=== PATIENT | female | born 1980 | race Caucasian/White ===

== ENCOUNTER 2020-05-13 21:39 | Emergency (ER) | payer MEDICARE ==
[~2020-05-13 21:39] MED LIST: CYAN1000I IM; ESTR30GE TD; HYDR-4068 PO; LISI-613 PO; PROG100C11 PO; QUET200T29 PO; QUET50TA55 PO
[2020-05-13 22:28] LABS: BASOPHILS % (AUTO) 0.4 % (0.0-5.0); EOSINOPHILS % (AUTO) 1.6 % (0.0-8.0); HEMATOCRIT 38.7 % (36-48); LYMPHOCYTES % (AUTO) 33.2 % (21.0-51.0); MEAN CORPUSCULAR HEMOGLOBIN 26.8 pg (27.0-33.0); MEAN CORPUSCULAR HGB CONC 33.9 g/dL (32.0-36.0); MEAN CORPUSCULAR VOLUME 79.1 fL (79-99); MONOCYTES % (AUTO) 7.7 % (3.0-13.0); NEUTROPHILS % (AUTO) 56.9 % (40.0-77.0); PLATELET COUNT (AUTO) 273 K/uL (130-400); RED BLOOD CELL COUNT(AUTO) 4.89 MIL/uL (4.00-5.50); RED CELL DISTRIBUTION WIDTH 13.8 % (11.0-15.5); WHITE BLOOD COUNT (AUTO) 5.6 K/uL (4.8-10.8)
[2020-05-13] MEDS ORDERED: ONDANSETRON HCL 4 MG/2 ML VIAL ONE ×2 (22:28→23:09)
[2020-05-13 22:29] LABS: BILIRUBIN,URINE Negative (NEGATIVE); COLOR,URINE Yellow (YELLOW); GLUCOSE, URINE (UA) Negative (NEGATIVE); KETONES,URINE Negative (NEGATIVE); LEUKOCYTE ESTERASE ,URINE Negative (NEGATIVE); NITRATE,URINE Negative (NEGATIVE); OCCULT BLOOD,URINE Negative (NEGATIVE); PH,URINE 5.5 (5.0-8.0); PROTEIN,URINE Negative (NEGATIVE)
[2020-05-13] MEDS ORDERED: MORPHINE SULFATE 4 MG/1ML SYG ONE ×2 (22:29→23:10)
[2020-05-13 22:31] LABS: APPEARANCE,URINE CLEAR (CLEAR)
[2020-05-13 22:57] LABS: CREATININE 0.8 mg/dL (0.5-1.5); POTASSIUM 3.5 mmol/L (3.5-5.1)
[2020-05-13 23:00] LABS: ALBUMIN 3.5 g/dL (3.5-5.0); BILIRUBIN,TOTAL 0.3 mg/dL (0.2-1.0); TOTAL PROTEIN, SERUM 7.2 g/dL (6.0-8.3)
== END 2020-05-13 23:56 | disposition home or self-care (01) ==
LOC: EDH 21:39
DX: R10.31 Right lower quadrant pain (principal); R11.2 Nausea with vomiting, unspecified; F41.9 Anxiety disorder, unspecified; F31.9 Bipolar disorder, unspecified; J45.909 Unspecified asthma, uncomplicated; Z88.6 Allergy status to analgesic agent; Z91.041 Radiographic dye allergy status; Z88.8 Allergy status to other drugs, medicaments and biological substances; Z91.018 Allergy to other foods; Z79.899 Other long term (current) drug therapy; Z98.890 Other specified postprocedural states; Z72.0 Tobacco use
CPT/HCPCS: 36415; 74176; 80053; 81003; 81025; 82150; 83690; 85025; 96374; 96375; 96376; 99284; J2270 ×2; J2405 ×2

== ENCOUNTER 2020-06-08 23:49 | Emergency (ER) | payer MEDICARE ==
[2020-06-09] MEDS ORDERED: ONDANSETRON HCL 4 MG/2 ML VIAL ONE (00:53)
[2020-06-09] MEDS ORDERED: MORPHINE SULFATE 4 MG/1ML SYG ONE (00:53)
[2020-06-09] MEDS ORDERED: SODIUM CHLORIDE 0.9% 1000ML 1,000 ML IV ONE (01:03)
[2020-06-09] MEDS ORDERED: FAMOTIDINE/PF 20 MG/2 ML VIAL IV ONE (01:39)
[2020-06-09] MEDS ORDERED: METOCLOPRAMIDE 10 MG/2 ML VIAL ONE (02:12)
[2020-06-09] MEDS ORDERED: DiphenhydrAMINE HCL 50 MG/ML VIAL ONE (02:13)
[2020-06-09] MEDS ORDERED: FENTANYL CITRATE PF 50 MCG/1 ML 2ML VIAL ONE (02:13)
== END 2020-06-09 03:28 | disposition home or self-care (01) ==
LOC: EDH 23:49
DX: R11.2 Nausea with vomiting, unspecified (principal); R10.31 Right lower quadrant pain; F41.9 Anxiety disorder, unspecified; J45.909 Unspecified asthma, uncomplicated; F31.9 Bipolar disorder, unspecified; I10 Essential (primary) hypertension; Z72.0 Tobacco use; Z88.8 Allergy status to other drugs, medicaments and biological substances; Z88.6 Allergy status to analgesic agent; Z91.018 Allergy to other foods; Z91.040 Latex allergy status; Z88.1 Allergy status to other antibiotic agents; Z79.899 Other long term (current) drug therapy; M54.5 Low back pain; M79.89 Other specified soft tissue disorders
CPT/HCPCS: 36415; 80053; 81003; 83690; 85025; 93971; 96361; 96374; 96375; 99284; J1200; J2270; J2405; J2765; J3010; J3490; J7030

== ENCOUNTER 2020-08-07 02:27 | Emergency (ER) | payer MEDICARE ==
[2020-08-07] MEDS ORDERED: ONDANSETRON HCL 4 MG/2 ML VIAL ONE (03:28)
[2020-08-07] MEDS ORDERED: METOCLOPRAMIDE 10 MG/2 ML VIAL ONE (03:28)
[2020-08-07] MEDS ORDERED: MORPHINE SULFATE 4 MG/1ML SYG ONE (03:28)
[2020-08-07 03:32] LABS: BASOPHILS % (AUTO) 0.3 % (0.0-5.0); HEMATOCRIT 41.7 % (36-48); LYMPHOCYTES % (AUTO) 27.6 % (21.0-51.0); MEAN CORPUSCULAR HEMOGLOBIN 27.2 pg (27.0-33.0); MEAN CORPUSCULAR HGB CONC 33.1 g/dL (32.0-36.0); MEAN CORPUSCULAR VOLUME 82.2 fL (79-99); MONOCYTES % (AUTO) 6.4 % (3.0-13.0); NEUTROPHILS % (AUTO) 65.5 % (40.0-77.0); PLATELET COUNT (AUTO) 372 K/uL (130-400); RED BLOOD CELL COUNT(AUTO) 5.07 MIL/uL (4.00-5.50); RED CELL DISTRIBUTION WIDTH 14.2 % (11.0-15.5); WHITE BLOOD COUNT (AUTO) 8.6 K/uL (4.8-10.8)
[2020-08-07 03:41] LABS: CREATININE 1.1 mg/dL (0.5-1.5); POTASSIUM 3.2 mmol/L (3.5-5.1)
[2020-08-07 03:45] LABS: ALBUMIN 4.3 g/dL (3.5-5.0); BILIRUBIN,TOTAL 0.6 mg/dL (0.2-1.0); TOTAL PROTEIN, SERUM 8.5 g/dL (6.0-8.3)
== END 2020-08-07 04:44 | disposition home or self-care (01) ==
LOC: EDH 02:27
DX: K31.84 Gastroparesis (principal); R11.10 Vomiting, unspecified; F41.9 Anxiety disorder, unspecified; J45.909 Unspecified asthma, uncomplicated; F31.9 Bipolar disorder, unspecified; I10 Essential (primary) hypertension; Z98.890 Other specified postprocedural states; Z90.49 Acquired absence of other specified parts of digestive tract; Z72.0 Tobacco use; Z88.1 Allergy status to other antibiotic agents; Z88.6 Allergy status to analgesic agent; Z88.8 Allergy status to other drugs, medicaments and biological substances; Z91.018 Allergy to other foods
CPT/HCPCS: 36415; 80053; 85025; 96361; 96374; 96375; 99284; J2270; J2405; J2765

== ENCOUNTER 2020-09-08 21:22 | Emergency (ER) | payer MEDICARE | END 2020-09-08 22:03 | disposition home or self-care (01) | LOC: EDH 21:22 | DX: L03.115 Cellulitis of right lower limb (principal); L03.811 Cellulitis of head [any part, except face]; F31.9 Bipolar disorder, unspecified; E66.9 Obesity, unspecified; J45.909 Unspecified asthma, uncomplicated; I10 Essential (primary) hypertension; F41.9 Anxiety disorder, unspecified; Z68.42 Body mass index [BMI] 45.0-49.9, adult; Z88.1 Allergy status to other antibiotic agents; Z88.6 Allergy status to analgesic agent; Z91.018 Allergy to other foods; Z88.8 Allergy status to other drugs, medicaments and biological substances; Z90.49 Acquired absence of other specified parts of digestive tract; Z90.710 Acquired absence of both cervix and uterus; Z98.890 Other specified postprocedural states ==

== ENCOUNTER 2020-10-15 20:59 | Emergency (ER) | payer MEDICARE ==
[2020-10-15 21:54] LABS: BASOPHILS % (AUTO) 0.3 % (0.0-5.0); EOSINOPHILS % (AUTO) 0.1 % (0.0-8.0); HEMATOCRIT 37.7 % (36-48); LYMPHOCYTES % (AUTO) 38.5 % (21.0-51.0); MEAN CORPUSCULAR HEMOGLOBIN 26.9 pg (27.0-33.0); MEAN CORPUSCULAR HGB CONC 32.6 g/dL (32.0-36.0); MEAN CORPUSCULAR VOLUME 82.3 fL (79-99); MONOCYTES % (AUTO) 5.5 % (3.0-13.0); NEUTROPHILS % (AUTO) 55.2 % (40.0-77.0); PLATELET COUNT (AUTO) 292 K/uL (130-400); RED BLOOD CELL COUNT(AUTO) 4.58 MIL/uL (4.00-5.50); RED CELL DISTRIBUTION WIDTH 13.8 % (11.0-15.5); WHITE BLOOD COUNT (AUTO) 10.3 K/uL (4.8-10.8)
[2020-10-15] MEDS ORDERED: METOCLOPRAMIDE 10 MG/2 ML VIAL ONE (22:04)
[2020-10-15] MEDS ORDERED: DiphenhydrAMINE HCL 50 MG/ML VIAL ONE (22:05)
[2020-10-15] MEDS ORDERED: ONDANSETRON HCL 4 MG/2 ML VIAL ONE (22:06)
[2020-10-15] MEDS ORDERED: SODIUM CHLORIDE 0.9% 1000ML 1,000 ML IV ONE ×2 (22:06)
[2020-10-15 22:10] LABS: CREATININE 0.9 mg/dL (0.5-1.5); POTASSIUM 3.8 mmol/L (3.5-5.1)
[2020-10-15 22:13] LABS: INR 0.92 (0.85-1.15); PARTIAL THROMBOPLASTIN TIME 21.2 SEC (26.3-35.5)
[2020-10-15 22:17] LABS: ALBUMIN 3.7 g/dL (3.5-5.0); BILIRUBIN,TOTAL 0.3 mg/dL (0.2-1.0); TOTAL PROTEIN, SERUM 7.5 g/dL (6.0-8.3)
== END 2020-10-15 23:30 | disposition left against medical advice (07) ==
LOC: EDH 20:59
DX: R10.31 Right lower quadrant pain (principal); R11.2 Nausea with vomiting, unspecified; I10 Essential (primary) hypertension; J45.909 Unspecified asthma, uncomplicated; F41.9 Anxiety disorder, unspecified; F31.9 Bipolar disorder, unspecified; Z88.1 Allergy status to other antibiotic agents; Z88.6 Allergy status to analgesic agent; Z88.8 Allergy status to other drugs, medicaments and biological substances; Z91.018 Allergy to other foods; Z90.49 Acquired absence of other specified parts of digestive tract; Z98.890 Other specified postprocedural states; Z90.722 Acquired absence of ovaries, bilateral; Z72.0 Tobacco use; Z76.5 Malingerer [conscious simulation]
CPT/HCPCS: 36415; 80053; 83605; 83690; 84484; 85025; 85610; 85730; 86850; 86900; 86901; 93005; 96361; 96374; 96375; 99284; J1200; J2405; J2765; J7030 ×2

== ENCOUNTER 2020-12-26 13:25 | Emergency (ER) | payer MEDICARE ==
[~2020-12-26 13:25] MED LIST changes: -LISI-613 PO; +LISI20TA24 PO; +QUET50TA22 PO; -QUET50TA55 PO
[2020-12-26 14:51] LABS: APPEARANCE,URINE Clear (CLEAR); BILIRUBIN,URINE Negative (NEGATIVE); COLOR,URINE Yellow (YELLOW); GLUCOSE, URINE (UA) Negative (NEGATIVE); KETONES,URINE Negative (NEGATIVE); LEUKOCYTE ESTERASE ,URINE Trace (NEGATIVE); NITRATE,URINE Negative (NEGATIVE); OCCULT BLOOD,URINE Negative (NEGATIVE); PROTEIN,URINE Negative (NEGATIVE)
[2020-12-26 14:59] LABS: HCG,QUAL RESULT NEGATIVE (NEGATIVE)
[2020-12-26 15:05] LABS: BACTERIA,URINE Few /HPF (None Seen); MUCUS,URINE Few LPF (None Seen); SQUAMOUS EPITHELIAL CELL,UR Moderate /HPF (0-2)
[2020-12-26] MEDS ORDERED: HYDROMORPHONE 1 MG/1 ML AMP ONE (15:25)
[2020-12-26] MEDS ORDERED: METOCLOPRAMIDE 10 MG/2 ML VIAL ONE (15:25)
[2020-12-26] MEDS ORDERED: SODIUM CHLORIDE 0.9% 1000ML 1,000 ML IV ONE (15:26)
[2020-12-26 15:40] LABS: BASOPHILS % (AUTO) 0.2 % (0.0-5.0); EOSINOPHILS % (AUTO) 0.2 % (0.0-8.0); HEMATOCRIT 23.7 % (36-48); LYMPHOCYTES % (AUTO) 22.3 % (21.0-51.0); MEAN CORPUSCULAR HEMOGLOBIN 24.2 pg (27.0-33.0); MEAN CORPUSCULAR VOLUME 80.9 fL (79-99); MONOCYTES % (AUTO) 8.4 % (3.0-13.0); NEUTROPHILS % (AUTO) 68.7 % (40.0-77.0); PLATELET COUNT (AUTO) 436 K/uL (130-400); RED BLOOD CELL COUNT(AUTO) 2.93 MIL/uL (4.00-5.50); WHITE BLOOD COUNT (AUTO) 4.8 K/uL (4.8-10.8)
[2020-12-26 15:52] LABS: CREATININE 0.7 mg/dL (0.5-1.5); POTASSIUM 3.7 mmol/L (3.5-5.1)
[2020-12-26 15:54] LABS: INR 1.04 (0.85-1.15); PROTHROMBIN TIME 11.3 SEC (9.6-11.6)
[2020-12-26 15:56] LABS: PARTIAL THROMBOPLASTIN TIME 23.6 SEC (26.3-35.5)
[2020-12-26 16:02] LABS: ALBUMIN 3.2 g/dL (3.5-5.0); BILIRUBIN,TOTAL 0.4 mg/dL (0.2-1.0); TOTAL PROTEIN, SERUM 7.4 g/dL (6.0-8.3)
[2020-12-26] MEDS ORDERED: IOHEXOL-350 75 ML VIAL IV ONE (16:05)
[2020-12-26] MEDS ORDERED: ONDANSETRON HCL 4 MG/2 ML VIAL ONE (17:18)
[2020-12-26] MEDS ORDERED: HYDROMORPHONE HCL 0.5 MG/0.5 ML ML ONE (17:18)
[2020-12-26] MEDS ORDERED: MORPHINE SULFATE 4 MG/1ML SYG ONE (18:11)
== END 2020-12-26 18:25 | disposition home or self-care (01) ==
LOC: EDH 13:25
DX: G89.18 Other acute postprocedural pain (principal); M54.5 Low back pain; R10.13 Epigastric pain; R11.2 Nausea with vomiting, unspecified; F41.9 Anxiety disorder, unspecified; F31.9 Bipolar disorder, unspecified; J45.909 Unspecified asthma, uncomplicated; I10 Essential (primary) hypertension; Z90.49 Acquired absence of other specified parts of digestive tract; Z98.890 Other specified postprocedural states; Z91.018 Allergy to other foods; Z88.1 Allergy status to other antibiotic agents; Z88.8 Allergy status to other drugs, medicaments and biological substances; Z88.2 Allergy status to sulfonamides; Z88.6 Allergy status to analgesic agent
CPT/HCPCS: 36415; 74177; 80053; 81001; 81025; 82150; 83605; 83690; 84702; 85025; 85610; 85730; 87040; 93005; 96361; 96374 ×2; 96375 ×2; 96376; 99284; 99285; J1170 ×2; J2270; J2405; J2765 ×2; J3490; J7030 ×2; Q9967; J1200; J1885

== ENCOUNTER 2020-12-26 21:55 | Emergency (ER) | payer MEDICARE ==
[~2020-12-26 21:55] MED LIST changes: +LISI-613 PO; -LISI20TA24 PO; -QUET50TA22 PO; +QUET50TA55 PO
[2020-12-26] MEDS ORDERED: METOCLOPRAMIDE 10 MG/2 ML VIAL ONE (22:50)
[2020-12-26] MEDS ORDERED: SODIUM CHLORIDE 0.9% 50 ML IV ONE (22:51)
[2020-12-26] MEDS ORDERED: FAMOTIDINE/PF 20 MG/2 ML VIAL IV ONE (22:51)
[2020-12-26] MEDS ORDERED: SODIUM CHLORIDE 0.9% 1000ML 1,000 ML IV ONE (23:34)
[2020-12-27] MEDS ORDERED: KETOROLAC TROMETHAMINE 30MG/ML ONE (00:13)
[2020-12-27] MEDS ORDERED: DiphenhydrAMINE HCL 50 MG/ML VIAL ONE (00:13)
== END 2020-12-27 00:33 | disposition home or self-care (01) ==
LOC: EDH 21:55
DX: R11.10 Vomiting, unspecified (principal); T81.31XA Disruption of external operation (surgical) wound, not elsewhere classified, initial encounter; F41.9 Anxiety disorder, unspecified; J45.909 Unspecified asthma, uncomplicated; F31.9 Bipolar disorder, unspecified; I10 Essential (primary) hypertension; Z90.49 Acquired absence of other specified parts of digestive tract; Z98.890 Other specified postprocedural states; Z88.8 Allergy status to other drugs, medicaments and biological substances; Z88.6 Allergy status to analgesic agent; Z88.2 Allergy status to sulfonamides; Z91.018 Allergy to other foods
CPT/HCPCS: 96374; 96375 ×2; 99284; J1200; J1885; J2765; J3490; J7030

== ENCOUNTER 2022-05-11 14:30 | Emergency (ER) | payer MEDICARE ==
[~2022-05-11] VITALS: Ht 167.6 cm; Wt 123.8 kg
[~2022-05-11 14:30] MED LIST changes: -LISI-613 PO; +LISI20TA24 PO; -QUET200T29 PO; +QUET200T30 PO; +QUET50TA24 PO; -QUET50TA55 PO
[2022-05-11 14:35] VITALS: BP 135/107
[2022-05-11 14:47] LABS: APPEARANCE,URINE Clear (CLEAR); BILIRUBIN,URINE Negative (NEGATIVE); COLOR,URINE Yellow (YELLOW); GLUCOSE, URINE (UA) Negative (NEGATIVE); KETONES,URINE Trace mg/dL (NEGATIVE); LEUKOCYTE ESTERASE ,URINE Negative (NEGATIVE); NITRATE,URINE Negative (NEGATIVE); OCCULT BLOOD,URINE Negative (NEGATIVE); PH,URINE 5.5 (5.0-8.0); PROTEIN,URINE Negative (NEGATIVE); UROBILINOGEN,URINE 0.2 mg/dL (0.2-1.0)
[2022-05-11 14:51] LABS: HCG,QUAL RESULT NEGATIVE (NEGATIVE)
[2022-05-11 15:56] LABS: BASOPHILS % (AUTO) 0.3 % (0.0-5.0); EOSINOPHILS % (AUTO) 2.9 % (0.0-8.0); HEMATOCRIT 38.4 % (36-48); LYMPHOCYTES % (AUTO) 31.5 % (21.0-51.0); MEAN CORPUSCULAR HEMOGLOBIN 25.2 pg (27.0-33.0); MEAN CORPUSCULAR HGB CONC 32.6 g/dL (32.0-36.0); MEAN CORPUSCULAR VOLUME 77.4 fL (79-99); MONOCYTES % (AUTO) 4.7 % (3.0-13.0); NEUTROPHILS % (AUTO) 59.9 % (40.0-77.0); PLATELET COUNT (AUTO) 241 K/uL (130-400); RED BLOOD CELL COUNT(AUTO) 4.96 MIL/uL (4.00-5.50); WHITE BLOOD COUNT (AUTO) 6.1 K/uL (4.8-10.8)
[2022-05-11] MEDS ORDERED: ONDANSETRON 4MG INJ IVP ONE (16:00)
[2022-05-11] MEDS ORDERED: 0.9%NACL 1000ML 1,000 ML IV ONE (16:00)
[2022-05-11] MEDS ORDERED: MORPHINE 4 MG SYG IVP ONE (16:00)
[2022-05-11 16:10] LABS: CREATININE 0.9 mg/dL (0.5-1.5); POTASSIUM 4.2 mmol/L (3.5-5.1)
[2022-05-11 16:15] LABS: ALBUMIN 3.5 g/dL (3.5-5.0); BILIRUBIN,TOTAL 0.2 mg/dL (0.2-1.0); TOTAL PROTEIN, SERUM 7.3 g/dL (6.0-8.3)
[2022-05-11] MEDS ORDERED: ACET-66 PO (17:20)
== END 2022-05-11 17:30 | disposition home or self-care (01) ==
LOC: EDH 14:30
DX: R30.0 Dysuria (principal); M25.521 Pain in right elbow; R10.12 Left upper quadrant pain; J45.909 Unspecified asthma, uncomplicated; F41.9 Anxiety disorder, unspecified; F31.9 Bipolar disorder, unspecified; Z91.040 Latex allergy status; Z88.8 Allergy status to other drugs, medicaments and biological substances
CPT/HCPCS: 36415; 73070; 74176; 80053; 81003; 81025; 85025; 87088; 96374; 96375; 99285; J2270; J2405

== ENCOUNTER 2023-04-22 23:01 | Emergency (ER) | payer MEDICARE ==
[~2023-04-22] VITALS: Ht 167.6 cm; Wt 145.1 kg
[~2023-04-22 23:01] MED LIST changes: +ACET-66 PO
[2023-04-22] MEDS ORDERED: CLIN-141 PO (23:27)
[2023-04-22 23:57] VITALS: BP 132/78
== END 2023-04-22 23:58 | disposition home or self-care (01) ==
LOC: EDH 23:01
DX: L03.311 Cellulitis of abdominal wall (principal); I10 Essential (primary) hypertension; E78.00 Pure hypercholesterolemia, unspecified; Z88.8 Allergy status to other drugs, medicaments and biological substances; Z79.899 Other long term (current) drug therapy

== ENCOUNTER 2024-07-12 05:56 | Day surgery (SDC) | payer MEDICARE ==
[~2024-07-12] VITALS: Ht 172.7 cm; Wt 128.4 kg
[2024-07-12] VITALS (9 sets, daily range): BP systolic 104–114; BP diastolic 63–74; PULSE 68–77; RESP 15–18
[~2024-07-12 05:56] MED LIST changes: -ACET-66 PO; +AMOX1TAB16 PO; +ATOR10 PO; -CYAN1000I IM; +DICY20TA3 PO; -ESTR30GE TD; +FAMO20TA8 PO; +HYDR50CA50 PO; -LISI20TA24 PO; +NAPR-1023 PO; +ONDA-104 PO; -PROG100C11 PO; -QUET200T30 PO; +SILV50CR31 TP; +TRAZ150T79 PO
[2024-07-12] MEDS: 0.9%NACL 1000ML 1,000 ML IV ONE (06:36)
[2024-07-12] MEDS ORDERED: PROPOFOL 10 MG/ML 20ML VIAL IV ONE (08:08)
== END 2024-07-12 09:05 | disposition home or self-care (01) ==
LOC: ENDO 05:56 → DAH 05:56 → ENDO 09:05
PROVIDERS: ATTEND Surgery
DX: R10.13 Epigastric pain (principal); K21.00 Gastro-esophageal reflux disease with esophagitis, without bleeding; K22.89 Other specified disease of esophagus; J45.909 Unspecified asthma, uncomplicated; E78.5 Hyperlipidemia, unspecified; E66.01 Morbid (severe) obesity due to excess calories; F41.9 Anxiety disorder, unspecified; I10 Essential (primary) hypertension; F31.61 Bipolar disorder, current episode mixed, mild; F44.9 Dissociative and conversion disorder, unspecified; Z86.718 Personal history of other venous thrombosis and embolism; Z90.49 Acquired absence of other specified parts of digestive tract; Z90.89 Acquired absence of other organs; Z98.84 Bariatric surgery status; Z68.42 Body mass index [BMI] 45.0-49.9, adult; Z79.899 Other long term (current) drug therapy; Z88.1 Allergy status to other antibiotic agents; Z88.8 Allergy status to other drugs, medicaments and biological substances; Z98.890 Other specified postprocedural states
CPT/HCPCS: 43239; J7030; J2704; A4620; A4215 ×2; A4223; A4657; A7002; A4222; A4221; A4663; A4606; J3490

== ENCOUNTER 2024-08-20 23:48 | Emergency (ER) | payer MEDICARE ==
[2024-08-21 00:28] LABS: EOSINOPHILS # (AUTO) 0.01 K/uL (0.00-0.70); EOSINOPHILS % (AUTO) 0.1 % (0.0-8.0); HEMATOCRIT 40.5 % (36-48); IMMATURE GRANULOCYTE ABSOLUTE 0.01 K/uL (0-1); LYMPHOCYTES % (AUTO) 26.1 % (21.0-51.0); MEAN CORPUSCULAR HEMOGLOBIN 27.8 pg (27.0-33.0); MEAN CORPUSCULAR HGB CONC 33.8 g/dL (32.0-36.0); MEAN CORPUSCULAR VOLUME 82.2 fL (79-99); MONOCYTES # (AUTO) 0.5 K/uL (0.1-1.0); MONOCYTES % (AUTO) 6.5 % (3.0-13.0); NEUTROPHILS # (AUTO) 5.1 K/uL (1.8-7.7); NEUTROPHILS % (AUTO) 67.2 % (40.0-77.0); PLATELET COUNT (AUTO) 250 K/uL (130-400); RED BLOOD CELL COUNT(AUTO) 4.93 MIL/uL (4.00-5.50); RED CELL DISTRIBUTION WIDTH 13.8 % (11.0-15.5); WHITE BLOOD COUNT (AUTO) 7.7 K/uL (4.8-10.8)
[2024-08-21 00:31] LABS: ALCOHOL, BLOOD < 3 mg/dL (0-10); CARBON DIOXIDE 27 mmol/L (21-32); CHLORIDE 106 mmol/L (101-111); CREATINE KINASE, TOTAL 115 U/L (21-232); CREATININE 1.1 mg/dL (0.5-1.0); GLOMERULAR FILTR. RATE CALC 65 mL/min (>90); GLUCOSE,RANDOM 105 mg/dL (70-105); POTASSIUM 4.2 mmol/L (3.5-5.1); SODIUM SERUM 144 mmol/L (136-145); UREA NITROGEN, BLOOD 18 mg/dL (7-18)
[2024-08-21 00:40] LABS: ACETAMINOPHEN < 1 mcg/mL (10-30)
[2024-08-21 01:00] LABS: APPEARANCE,URINE CLOUDY (CLEAR); BILIRUBIN,URINE NEGATIVE (NEGATIVE); COLOR,URINE YELLOW (YELLOW); GLUCOSE, URINE (UA) NEGATIVE (NEGATIVE); KETONES,URINE 10 mg/dL (NEGATIVE); LEUKOCYTE ESTERASE ,URINE 75 Leu/uL (NEGATIVE); NITRATE,URINE NEGATIVE (NEGATIVE); OCCULT BLOOD,URINE NEGATIVE (NEGATIVE); PROTEIN,URINE 50 mg/dL (NEGATIVE); UROBILINOGEN,URINE 6 mg/dL (0.2-1.0)
[2024-08-21 01:03] LABS: ADD UA MICROSCOPIC YES
[2024-08-21 01:06] LABS: AMPHET/METH SCREEN,URINE NEGATIVE (NEGATIVE); BARBITURATE SCREEN, URINE NEGATIVE (NEGATIVE); BENZODIAZEPINES SCREEN,URINE NEGATIVE (NEGATIVE); CANNABINOID SCREEN,URINE NEGATIVE (NEGATIVE); COCAINE SCREEN,URINE POSITIVE (NEGATIVE); OPIATE SCREEN,URINE NEGATIVE (NEGATIVE); PHENCYCLIDINE SCREEN,URINE NEGATIVE (NEGATIVE)
[2024-08-21 01:12] LABS: BACTERIA,URINE FEW /HPF (None Seen); MUCUS,URINE MOD LPF (None Seen); RBC,URINE 0-1 /HPF (0-1); SQUAMOUS EPITHELIAL CELL,UR FEW /HPF (0-2)
[2024-08-21] MEDS: ketOROlac 30MG VIAL (30MG/ML) IM ONE (01:46)
[2024-08-21] MEDS: DiphenhydrAMINE HCL 50 MG/ML VIAL IV ONE (01:46)
[2024-08-21] MEDS: metoCLOPRAmide 10 MG/2 ML VIAL IVP ONE (01:46)
[2024-08-21] MEDS: cefTRIAXone 1G VIAL IVPB ONE (01:47)
[2024-08-21] MEDS: 0.9%NACL 1000ML 1,000 ML IV ONE (01:48)
[2024-08-21 03:19] VITALS: TEMP 98.1
[2024-08-21] MEDS: hydrOXYzine 50MG VIAL 50 MG/ML VIAL IM SCH (03:34)
[2024-08-21 06:29] VITALS: BP 106/64; PULSE 66; RESP 18; O2SAT 98
== END 2024-08-21 06:40 | disposition home or self-care (01) ==
LOC: EDH 23:48
DX: N39.0 Urinary tract infection, site not specified (principal); E86.0 Dehydration; F14.10 Cocaine abuse, uncomplicated; F31.9 Bipolar disorder, unspecified; F41.9 Anxiety disorder, unspecified; Z79.899 Other long term (current) drug therapy; Z88.8 Allergy status to other drugs, medicaments and biological substances; Z91.040 Latex allergy status; Z98.890 Other specified postprocedural states
CPT/HCPCS: 99285; 71045; 82550; 80048; 80305; 85025; 87086; 36415; 93005; 81001; 96374; 96375; 96372 ×2; G0481; J1200; J3410; J7030; J0696; J1885; J2765

== ENCOUNTER 2025-08-30 23:15 | Emergency (ER) | payer MEDICARE, MEDICAID ==
[~2025-08-30] VITALS: Ht 172.7 cm; Wt 98.0 kg
[~2025-08-30 23:15] MED LIST changes: -AMOX1TAB16 PO; -ATOR10 PO; -DICY20TA3 PO; -FAMO20TA8 PO; +FAMO40TA7 PO; -HYDR-4068 PO; +HYDR10CA5 PO; -HYDR50CA50 PO; -NAPR-1023 PO; -ONDA-104 PO; +PANT20TA18 PO; +QUET100T PO; +QUET400T PO; -QUET50TA24 PO; -SILV50CR31 TP; +SUCR1TAB2 PO; +TRAZ-187 PO; -TRAZ150T79 PO
[2025-08-31 00:30] LABS: ASPARTATE AMINOTRANSFERASE 25.0 U/L (10-37); CREATININE 0.7 mg/dL (0.5-1.0); GLOMERULAR FILTR. RATE CALC 111.0 mL/min (>90); GLUCOSE,RANDOM 78.0 mg/dL (70-105); SODIUM SERUM 141.0 mmol/L (136-145); TOTAL PROTEIN, SERUM 7.4 g/dL (6.0-8.3); UREA NITROGEN, BLOOD 14.0 mg/dL (7-18)
[2025-08-31 00:35] LABS: APPEARANCE,URINE CLEAR (CLEAR); GLUCOSE, URINE (UA) NEGATIVE (NEGATIVE); LEUKOCYTE ESTERASE ,URINE NEGATIVE Leu/uL (NEGATIVE); NITRATE,URINE NEGATIVE (NEGATIVE); OCCULT BLOOD,URINE NEGATIVE (NEGATIVE)
[2025-08-31 00:38] LABS: ADD UA MICROSCOPIC YES
[2025-08-31 00:39] LABS: CALCIUM OXALATE CRYSTALS,UR FEW /LPF (None Seen); OTHER CASTS, URINE 2 /LPF (None Seen); SQUAMOUS EPITHELIAL CELL,UR RARE /HPF (0-2)
[2025-08-31 00:47] LABS: IMMATURE GRANULOCYTE ABSOLUTE 0.02 K/uL (0-1); NUCLEATED RED BLOOD CELLS 0.0 % (0.0-0.19); PLATELET COUNT (AUTO) 271 K/uL (130-400); RED BLOOD CELL COUNT(AUTO) 4.69 MIL/uL (4.00-5.50); RED CELL DISTRIBUTION WIDTH 12.7 % (11.0-15.5); WHITE BLOOD COUNT (AUTO) 7.1 K/uL (4.8-10.8)
[2025-08-31] MEDS: LACTATED RINGERS 1000ML IV STA (00:48)
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
[2025-08-31] MEDS ORDERED: IOHEXOL-350 75 ML VIAL IV ONE (01:12)
[2025-08-31 01:43] LABS: AMPHET/METH SCREEN,URINE NEGATIVE (NEGATIVE); BARBITURATE SCREEN, URINE NEGATIVE (NEGATIVE); CANNABINOID SCREEN,URINE NEGATIVE (NEGATIVE); COCAINE SCREEN,URINE POSITIVE (NEGATIVE)
--- NOTE | 2025-08-31 02:41 | HMCIMG ---
EXAM: CT Abdomen and Pelvis with and without IV contrast CLINICAL HISTORY: Pain. Bloody stool. TECHNIQUE: Thin collimated axial CT images of the abdomen and pelvis were obtained without and with intravenous contrast, with sagittal and coronal reformatted images also submitted. A CT scan is done according to ALARA (As Low As Reasonably Achievable). COMPARISON: CT scan of the abdomen and pelvis. 05/11/2022. FINDINGS: Unremarkable visualized lung parenchyma. There is no focal abnormality appreciated within the liver, pancreas, spleen, adrenals, or kidneys. Status post cholecystectomy. There is no obvious bowel wall thickening. Bowel loops are normal in caliber without evidence of obstruction or ileus. Interval gastric surgery. Small hiatus hernia. The appendix is unremarkable. There is no abnormality within the urinary bladder. Unremarkable reproductive organs. No lymphadenopathy. No free fluid. No pneumoperitoneum. No gross abnormality in the abdominal vessels. There is no acute osseous abnormality. Osteopenia. Intact fixation hardware in the lower lumbar spine. Thoracolumbar spondylosis. IMPRESSIONS: No acute process in the abdomen or pelvis. Interval gastric bypass surgery and development of a small hiatus hernia. /Haritha
[2025-08-31] MEDS: LIDOCAINE HCL 2% VISCOUS 15 ML UDCUP PO ONE (03:02)
[2025-08-31] MEDS: DICYCLOMINE HCL 10 MG/5 ML ML PO ONE (03:02)
[2025-08-31] MEDS: MAG/ALUM/SIMETH 30 ML UDCUP PO ONE (03:02)
[2025-08-31 03:23] VITALS: BP 122/62; PULSE 88; RESP 18; TEMP 98.7; O2SAT 99
--- NOTE | 2025-08-31 04:13 | NUR ---
PATIENT SAID SHE PREFERRED TO GO HOME, BOOK HER OWN TRANSPORT AND SORT THINGS OUT WITH HER 'FRIEND'
== END 2025-08-31 04:12 | disposition home or self-care (01) ==
LOC: EDH 23:15
DX: K92.1 Melena (principal); F41.9 Anxiety disorder, unspecified; F31.9 Bipolar disorder, unspecified; Z79.899 Other long term (current) drug therapy; Z88.1 Allergy status to other antibiotic agents; Z91.040 Latex allergy status; Z98.84 Bariatric surgery status
CPT/HCPCS: 99285; 80053; 80305; 85025; 81025; 36415; 81001; 74178; 96374; 96375; 96376; J1885; J2405; J2270 ×2; Q9967